=== PATIENT | male | born 1945 | race Caucasian/White ===

== ENCOUNTER 2016-10-09 10:25 | Outpatient (CLI) | payer MEDICARE | END 2016-10-09 10:26 | disposition home or self-care (01) | DX: B71.9 Cestode infection, unspecified (principal) ==

== ENCOUNTER 2016-10-17 17:00 | Outpatient (CLI) | payer MEDICARE | END 2016-10-17 17:01 | disposition home or self-care (01) | DX: B71.9 Cestode infection, unspecified (principal) ==

== ENCOUNTER 2016-12-01 13:51 | Outpatient (CLI) | payer MEDICARE | END 2016-12-01 13:52 | disposition home or self-care (01) | DX: I35.8 Other nonrheumatic aortic valve disorders (principal) ==

== ENCOUNTER 2017-10-23 11:27 | Outpatient (CLI) | payer MEDICARE ==
[2017-10-23 19:00] LABS: BASOPHILS # (AUTO) 0.1 10^3/uL (0.0-0.1); BASOPHILS % (AUTO) 1.3 %; EOSINOPHILS # (AUTO) 0.3 10^3/uL (0.0-0.7); EOSINOPHILS % (AUTO) 5.4 %; LYMPHOCYTES # (AUTO) 1.5 10^3/uL (1.5-3.5); LYMPHOCYTES % (AUTO) 25.2 %; MEAN CORPUSCULAR HEMOGLOBIN 27.2 pg (27.0-31.0); MEAN CORPUSCULAR HGB CONC 31.9 g/dL (32.0-36.0); MEAN CORPUSCULAR VOLUME 85.2 fL (80.0-94.0); MEAN PLATELET VOLUME 9.8 fL (7.4-11.4); MONOCYTES # (AUTO) 0.7 10^3/uL (0.0-1.0); MONOCYTES % (AUTO) 10.6 %; NEUTROPHILS # (AUTO) 3.5 10^3/uL (1.5-6.6); NEUTROPHILS % (AUTO) 57.5 %; PLT - PLATELET COUNT 208 10^3/uL (130-450); RED BLOOD COUNT 5.52 10^6/uL (4.70-6.10); RED CELL DISTRIBUTION WIDTH 14.8 % (12.0-15.0); WHITE BLOOD COUNT 6.1 x10^3/uL (4.8-10.8)
[2017-10-23 19:20] LABS: ALBUMIN/GLOBULIN RATIO 1.3 (1.0-2.2); BILIRUBIN,TOTAL 0.7 mg/dL (0.2-1.0); CALCIUM 9.2 mg/dL (8.5-10.3); CREATININE 1.2 mg/dL (0.6-1.2)
== END 2017-10-23 11:28 ==
LOC: LAB.WCP 11:27
PROVIDERS: ATTEND Family Medicine
DX: R10.9 Unspecified abdominal pain (principal)
CPT/HCPCS: 36415; 80053; 85025

== ENCOUNTER 2017-10-26 11:50 | Outpatient (CLI) | payer MEDICARE ==
[2017-10-26] MEDS ORDERED: IOPAMIDOL-300 100 ML VIAL ONE (14:17)
[2017-10-26] MEDS ORDERED: IOPAMIDOL-300 100 ML VIAL IVP ONE (16:00)
--- NOTE | 2017-10-26 20:19 | CT Report ---
EXAM: CT CHEST EXAM DATE: 10/26/2017 03:03 PM. CLINICAL HISTORY: Large bruise without injury under right axilla with mass, right flank pain COMPARISONS: Same day CT abdomen/pelvis. TECHNIQUE: Routine helical CT imaging was performed through the chest. IV contrast: 100 mL Isovue-300 . Reconstructions: Coronal and sagittal. In accordance with CT protocol optimization, one or more of the following dose reduction techniques w ere utilized for this exam: automated exposure control, adjustment of mA and/or KV based on patient s ize, or use of iterative reconstructive technique. FINDINGS: Mild motion artifact. Chest wall: No evidence of right axillary or chest wall mass or lymphadenopathy. Small hyperdense hem atoma in the anterior aspect of the right latissimus dorsi muscle measures 4.2 x 2.2 x 2.4 cm (image 21 series 2). No abnormal enhancement. Mild edema in the adjacent fat subcutaneous extending inferior ly. Lungs/Pleura: Mildly elevated right hemidiaphragm. No pneumonia, pleural effusion or pneumothorax. No suspicious nodule or mass allowing for limitations of motion artifact. Mediastinum: Normal heart size. No pericardial effusion. Normal caliber aorta. Asymmetrically promine nt right hilar lymph nodes measuring up to 12 x 10 mm (image 32 series 2). No mediastinal or left hil ar lymphadenopathy. Bones: Unremarkable. Visualized Abdomen: See separately dictated CT. Other: None. IMPRESSION: 1. Small hematoma in the right latissimus dorsi muscle measuring up to 4.2 cm. Mild edema in the sampson cent chest wall subcutaneous fat. MRI with and without contrast may be helpful to evaluate for underl yanet lesion if there is no history of trauma and the patient is not coagulopathic. 2. Mild asymmetric prominence of right hilar lymph nodes is nonspecific. [facility] Referring Provider Line: [phone] SITE ID: [id number]
--- NOTE | 2017-10-26 22:01 | CT Report ---
EXAM: CT ABDOMEN AND PELVIS WITHOUT AND WITH CONTRAST (CT IVP) EXAM DATE: 10/26/2017 02:22 PM. CLINICAL HISTORY: ABDOMINAL PAIN. Right axillary bruise. COMPARISONS: Same day CT chest, 01/24/2016. TECHNIQUE: Routine helical imaging was performed through the kidneys, ureters and bladder in the prec ontrast, postcontrast and delayed phase. IV Contrast: 100 mL Isovue-370. Reconstructions: Coronal and sagittal. In accordance with CT protocol optimization, one or more of the following dose reduction techniques w ere utilized for this exam: automated exposure control, adjustment of mA and/or KV based on patient s ize, or use of iterative reconstructive technique. FINDINGS: Lung Bases: See CT chest Right Kidney/Ureter: 4 nonobstructing right renal stones, the largest superiorly measuring [address] one inferiorly measures 6 mm. No ureteral stones or filling defects. No hydronephrosis. Exophytic ri ght renal cyst measures 2.5 x 2.4 cm. Tiny cortical hypoattenuating lesion superiorly is too small to characterize but statistically likely a cyst. No enhancing mass. Left Kidney/Ureter: There are 3-4 stones measuring up to 4 mm in the midpole. No ureteral stones or f illing defects. Inferior pole cyst measures 3.8 x 2.3 cm. Adjacent 9 mm hypoattenuating lesion and ti ny 5 mm exophytic inferior pole lesion are not well characterized but statistically likely cysts. Other Solid Organs: Unremarkable. Gallbladder demonstrates probable tiny gallstones. The bile ducts a re unremarkable. Peritoneal Cavity/Bowel: No bowel obstruction. No free fluid, free air or adenopathy. Sigmoid diverti culosis. Pelvic Organs: No definite bladder stones. Small calcifications along the posterior bladder are likel y outside of the lumen and similar to 2016. No filling defects in the opacified portion of the bladde r. The prostate gland is enlarged and indents the bladder base measuring 5 cm in diameter. Vasculature: Atherosclerosis without aneurysm. Bones: L2 and L3 superior endplate compression deformities are unchanged. Other: Right flank soft tissues demonstrate mild edema. IMPRESSION: 1. Nonobstructing renal stones bilaterally as described. No obstructing stones. 2. No enhancing mass. Bilateral renal cysts. 3. Mild edema in the right flank subcutaneous tissues is likely related to the right latissimus dorsi hematoma as described in the CT chest. 4. Enlarged prostate gland. [facility] Referring Provider Line: [phone] SITE ID: [id number]
== END 2017-10-26 11:51 | disposition home or self-care (01) ==
LOC: DI 11:50
PROVIDERS: ATTEND Family Medicine
DX: N20.0 Calculus of kidney (principal); R10.9 Unspecified abdominal pain; R05 Cough; Q61.02 Congenital multiple renal cysts; N40.0 Benign prostatic hyperplasia without lower urinary tract symptoms; S30.0XXA Contusion of lower back and pelvis, initial encounter
CPT/HCPCS: 71260; 74178; Q9967

== ENCOUNTER 2018-08-29 13:04 | Outpatient (CLI) | payer MEDICARE ==
[2018-08-29 18:32] LABS: BASOPHILS # (AUTO) 0.1 10^3/uL (0.0-0.1); BASOPHILS % (AUTO) 1.3 %; EOSINOPHILS # (AUTO) 0.2 10^3/uL (0.0-0.7); EOSINOPHILS % (AUTO) 4.3 %; HGB - HEMOGLOBIN 15.2 g/dL (14.0-18.0); LYMPHOCYTES # (AUTO) 1.4 10^3/uL (1.5-3.5); LYMPHOCYTES % (AUTO) 25.9 %; MEAN CORPUSCULAR HEMOGLOBIN 28.4 pg (27.0-31.0); MEAN CORPUSCULAR HGB CONC 32.3 g/dL (32.0-36.0); MEAN CORPUSCULAR VOLUME 88.1 fL (80.0-94.0); MEAN PLATELET VOLUME 9.8 fL (7.4-11.4); MONOCYTES # (AUTO) 0.4 10^3/uL (0.0-1.0); MONOCYTES % (AUTO) 7.3 %; NEUTROPHILS # (AUTO) 3.3 10^3/uL (1.5-6.6); NEUTROPHILS % (AUTO) 61.2 %; PLT - PLATELET COUNT 153 10^3/uL (130-450); RED BLOOD COUNT 5.35 10^6/uL (4.70-6.10); WHITE BLOOD COUNT 5.4 x10^3/uL (4.8-10.8)
[2018-08-29 19:04] LABS: THYROID STIMULATING HORMONE 1.65 uIU/mL (0.34-5.60)
[2018-08-29 19:06] LABS: FREE T4 (FREE THYROXINE) 0.97 ng/dL (0.58-1.64)
[2018-08-29 20:15] LABS: DIFFERENTIAL COMMENT MANUAL=AUTO DIFF; PLATELET ESTIMATE, MANUAL NORMAL (130-450,000) (NORMAL); PLATELET MORPHOLOGY NORMAL APPEARANCE (NORMAL); RBC MORPHOLOGY (MULTIPLE) NORMAL APPEARANCE (NORMAL)
[2018-08-29 20:17] LABS: ALBUMIN/GLOBULIN RATIO 1.3 (1.0-2.2); BILIRUBIN,TOTAL 0.6 mg/dL (0.2-1.0); CALCIUM 9.2 mg/dL (8.5-10.3); CREATININE 1.2 mg/dL (0.6-1.2)
== END 2018-08-29 13:05 | disposition home or self-care (01) ==
LOC: LAB.F 13:04
PROVIDERS: ATTEND Nurse Practitioner Family
DX: R53.83 Other fatigue (principal)
CPT/HCPCS: 36415; 80053; 84439; 84443; 84481; 85025

== ENCOUNTER 2018-11-25 00:20 | Emergency (ER) | payer MEDICARE ==
[2018-11-25] MEDS ORDERED: IOVERSOL 320 100 ML VIAL IVP ONE ×3 (00:21→01:54)
[2018-11-25] MEDS ORDERED: SODIUM CHLORIDE 0.9% 1,000 ML IV ONE (00:44)
--- NOTE | 2018-11-25 00:44 | ED Physician Documentation ---
PD HPI FOCAL NEURO - Stated complaint Stated Complaint: RIGHT SIDE NUMB/FACE NUMB - Chief complaint Chief Complaint: Neuro - History obtained from History obtained from: Patient - History of Present Illness Timing - onset: How many hours ago (08/06) Timing - duration: Hours (08/06) Timing - details: Abrupt onset Severity of deficit: Mild (right arm and leg numbness without weakness, then developed left face numbness about 45 minutes later.) Weakness: No: Face, Arm, Leg Numbness: Arm, Hand, Foot, Right, Other (and left face numb) Associated symptoms: No: Headache, Nausea / vomiting Contributing factors: negative: Anticoagulated, Vascular dz, Atrial fibrillation Baseline status: positive: A&OX3, ambulatory, indep Similar symptoms before: Has not had sx before Recently seen: Not recently seen Review of Systems Constitutional: denies: Fever, Myalgias Nose: denies: Rhinorrhea / runny nose, Congestion Throat: denies: Sore throat Cardiac: denies: Chest pain / pressure, Pedal edema Respiratory: denies: Dyspnea, Cough GI: denies: Abdominal Pain, Vomiting, Diarrhea Skin: denies: Rash, Lesions Neurologic: reports: Numbness, Other (no trouble walking). denies: Focal weakness, Difficulty speaking, Near syncope PD PAST MEDICAL HISTORY - Past Medical History Cardiovascular: Valve disorder (aortic stenosis) Respiratory: None Neuro: None Endocrine/Autoimmune: None : Benign prostate hypertrophy, Kidney stones - Past Surgical History Past Surgical History: Yes General: Appendectomy - Present Medications Home Medications: Ambulatory Orders Medication Instructions Recorded Confirmed Dextroamphetamine/Amphetamine 11/25/18 [Dextroamp-Amphetamin 30 mg Tab] Tamsulosin HCl [Flomax] 11/25/18 - Allergies Allergies/Adverse Reactions: Allergies Allergy/AdvReac Type Severity Reaction Status Date / Time No Known Drug Allergies Allergy Verified 11/25/18 00:26 - Social History Does the pt smoke?: No Smoking Status: Never smoker Does the pt drink ETOH?: No Does the pt have substance abuse?: No - Family History Family history: reports: CAD. denies: Venous thromboembolism - Immunizations Immunizations: TDAP >10years/unknown PD ED PE NORMAL - Vitals Vital signs reviewed: Yes - General General: Alert and oriented X 3, No acute distress, Well developed/nourished - HEENT HEENT: Ears normal, Pharynx benign - Neck Neck: Supple, no meningeal sign, No adenopathy, No bruit - Cardiac Cardiac: RRR, Other (1/6 murmur left chest radiating to neck c/w .) - Respiratory Respiratory: Clear bilaterally - Abdomen Abdomen: Soft, Non tender NIHSS - Level of Consciousness Level of consciousness: (0) Alert, Keenly responsive LOC Questions: (0) Answers both Q's correct LOC Commands: (0) Performs both correctly - Gaze Best Gaze: (0) Normal - Visual Visual: (0) No loss - Facial Palsy Facial Palsy: (0) Normal, symmetrical movement - Motor Arms (both separate) Motor Arm (right): (0) No drift Motor Arm (left): (0) No drift - Motor Legs (both separate) Motor Leg (right): (0) No drift Motor Leg (left): (0) No drift - Limb Ataxia Limb Ataxia: (0) Absent - Sensory Sensory: (1) [id number] loss - Best Language Best Language: (0) No aphasia - Dysarthria Dysarthria: (0) Normal - Extinction and Inattention (formally neg Extinction and inattention: (0) No abnormality - Total Score/Results Total Score/Result: 1 Results - Vitals Vitals: Vital Signs - 24 hr 11/25/18 11/25/18 11/25/18 00:24 00:34 00:41 Temperature 36.2 C L Heart Rate 87 80 78 Respiratory 16 16 14 Rate Blood Pressure 174/110 H 174/108 H 161/96 H O2 Saturation 97 98 97 11/25/18 11/25/18 11/25/18 01:37 02:02 02:30 Temperature Heart Rate 79 79 73 Respiratory 17 22 18 Rate Blood Pressure 150/93 H 181/104 H 175/105 H O2 Saturation 96 96 98 11/25/18 03:13 Temperature 36.3 C L Heart Rate 78 Respiratory 17 Rate Blood Pressure 132/69 H O2 Saturation 99 Oxygen O2 Source Room air - Labs Labs: Laboratory Tests 11/25/18 11/25/18 11/25/18 00:30 00:30 00:30 WBC 6.5 RBC 5.00 Hgb 14.0 Hct 42.6 MCV 85.3 MCH 28.1 MCHC 33.0 RDW 15.4 H Plt Count 167 MPV 8.4 Neut # (Auto) 3.8 Lymph # (Auto) 1.8 [place] # (Auto) 0.7 Eos # (Auto) 0.3 Baso # (Auto) 0.0 Absolute Nucleated RBC 0.00 Nucleated RBC % 0.0 ESR 7 Sodium 140 Potassium 3.9 Chloride 105 Carbon Dioxide 26 Anion Gap 9.0 BUN 18 Creatinine 1.5 H Estimated GFR (MDRD) 46 L Glucose 94 Calcium 9.0 Magnesium 2.2 Total Bilirubin 0.5 AST 28 ALT 31 Alkaline Phosphatase 85 Total Protein 7.3 Albumin 4.1 Globulin 3.2 Albumin/Globulin Ratio 1.3 Lipase 28 - Rads (name of study) head CT Radiology: Prelim report reviewed, Discussed with rads (no acute process), See rad report head/neck angio Radiology: Prelim report reviewed, Discussed with rads (no stenoses/occlusions), See rad report PD MEDICAL DECISION MAKING - ED course Complexity details: reviewed results, re-evaluated patient (Back from CT he is feeling improvement in his numbness without complete resolution. Consultation with [facility] tele-stroke neurology was made and I talked the case with him and the neurologist did do video conferencing with the patient. Shared decision was to not do any thrombolytics because of mild symptoms and resolving. The patient preference is to not do thrombolytics as well. The neurologist and myself to discuss the desire for further workup. The patient however states to rather go home. He is understanding of the reason and importance of better defining the degree of injury such as TIA versus stroke and also to evaluate for stroke mimics such as MS. He states he would follow-up with his primary care for outpatient evaluation. He prefers not to be in the hospital. The nurse and his were present during the discussion.), considered differential, d/w patient Departure - Departure Disposition: 01 Home, Self Care Clinical Impression: Numbness on right side Cerebrovascular accident (CVA) Qualifiers: CVA mechanism: unspecified Qualified Code(s): I63.9 - Cerebral infarction, unsp ecified Condition: Stable Record reviewed to determine appropriate education?: Yes Instructions: ED Transient Ischemic Attack Comments: Take an aspirin 81 mg daily. Follow-up with your primary care in the next few days, call for an appointment. Commonly we would have you in the hospital for further testing such as MRI and echocardiogram. These can be helpful to determine stroke versus TIA and also assess for stroke mimics such as MS. I understand you would prefer going home and that is your choice. Please follow- up with your primary care for further evaluation and testing. Reurn if worsening symptoms. Discharge Date/Time: 11/25/18 03:13
[2018-11-25 00:56] LABS: BASOPHILS % (AUTO) 0.2 %; EOSINOPHILS # (AUTO) 0.3 10^3/uL (0.0-0.7); EOSINOPHILS % (AUTO) 4.6 %; LYMPHOCYTES # (AUTO) 1.8 10^3/uL (1.5-3.5); LYMPHOCYTES % (AUTO) 27.5 %; MEAN CORPUSCULAR HEMOGLOBIN 28.1 pg (27.0-31.0); MEAN CORPUSCULAR VOLUME 85.3 fL (80.0-94.0); MEAN PLATELET VOLUME 8.4 fL (7.4-11.4); MONOCYTES # (AUTO) 0.7 10^3/uL (0.0-1.0); MONOCYTES % (AUTO) 10.4 %; NEUTROPHILS # (AUTO) 3.8 10^3/uL (1.5-6.6); NEUTROPHILS % (AUTO) 57.3 %; PLT - PLATELET COUNT 167 10^3/uL (130-450); RED CELL DISTRIBUTION WIDTH 15.4 % (12.0-15.0); WHITE BLOOD COUNT 6.5 x10^3/uL (4.8-10.8)
[2018-11-25 01:05] LABS: ALBUMIN 4.1 g/dL (3.2-5.5); ALBUMIN/GLOBULIN RATIO 1.3 (1.0-2.2); BILIRUBIN,TOTAL 0.5 mg/dL (0.2-1.0); CREATININE 1.5 mg/dL (0.6-1.2); MAGNESIUM 2.2 mg/dL (1.7-2.8); TOTAL PROTEIN 7.3 g/dL (6.7-8.2)
--- NOTE | 2018-11-25 01:23 | CT Report ---
Reason: right side numbness; left face numbness Procedure Date: 11/25/2018 Accession Number: [id number] / [id number] Procedure: CT - Head W/O Stroke Protocol CPT Code: FULL RESULT: EXAM: CT HEAD EXAM DATE: 11/25/2018 01:12 AM. CLINICAL HISTORY: Right side numbness; left face numbness. COMPARISON: None. TECHNIQUE: Multiaxial CT images were obtained from the foramen magnum to the vertex. Reformats: Sagittal and coronal. IV contrast: None. In accordance with CT protocol optimization, one or more of the following dose reduction techniques were utilized for this exam: automated exposure control, adjustment of mA and/or KV based on patient size, or use of iterative reconstructive technique. FINDINGS: Parenchyma: No intraparenchymal hemorrhage. No evidence of mass, midline shift, or CT findings of acute infarction. Chaudhari-white differentiation is distinct. Extraaxial Spaces: Normal for age. No subdural or epidural collections identified. Ventricles: Normal in size and position. Sinuses and Orbits: Imaged paranasal sinuses, orbits, and mastoids show no significant abnormality. Bones: No evidence of fracture or calvarial defect. Other: None. IMPRESSION: No acute or focal intracranial abnormality. ASPECTS 10 bilaterally [facility] The critical test notification system was initiated by Dr. Srinivas Grove at 01:18 AM on 11/25/2018. The above critical test findings were discussed with Yong Manriquez by Dr. Srinivas Grove at 01:21 AM on 11/25/2018.
--- NOTE | 2018-11-25 02:16 | CT Report ---
Reason: left face; right body numbness Procedure Date: 11/25/2018 Accession Number: [id number] / [id number] Procedure: CT - ANGIO HEAD W CPT Code: FULL RESULT: EXAM: CT ANGIOGRAM HEAD. CT SCAN OF THE HEAD WITH CONTRAST. EXAM DATE: 11/25/2018 01:43 AM CLINICAL HISTORY: Left face; right body numbness. COMPARISON: HEAD W/O STROKE PROTOCOL 11/25/2018 1:10 AM. TECHNIQUE: - CT Scan Head: Using a multidetector scanner, axial images were acquired from the foramen magnum to the skull vertex prior to and following contrast administration. - CT Angiogram: Using a multidetector scanner, high-resolution axial images were acquired from the skull base through vertex following rapid infusion of intravenous contrast. Reformats: Multiplanar MIP reformats were reconstructed. Nascet criteria used for stenosis measurement. IV Contrast: [id number] 80ml. In accordance with CT protocol optimization, one or more of the following dose reduction techniques were utilized for this exam: automated exposure control, adjustment of mA and/or KV based on patient size, or use of iterative reconstructive technique. FINDINGS: POST-CONTRAST HEAD: No abnormal enhancement. CT ANGIOGRAM HEAD: Left vertebral artery is slightly larger than the right. Basilar artery is patent with a congenitally small appearance. Persistent circulation to the right posterior cerebral artery. Patent left posterior communicating artery. Both posterior cerebral arteries appear patent. Both internal carotid arteries, anterior and middle cerebral arteries are patent and unremarkable. Patent anterior communicating artery. DURAL VENOUS SINUSES AND MAJOR CENTRAL VEINS: Patent. IMPRESSION: CT Head: No acute intracranial abnormality. Specifically, no evidence of acute infarct, hemorrhage, or mass lesion. No abnormal enhancement. CTA Head: No large vessel occlusion, stenosis or aneurysm. [facility] The call report notification system was initiated by Dr. Srinivas Grove at 02:01 AM on 11/25/2018. The above call report findings were discussed with Yong Manriquez by Dr. Srinivas Grove at 02:14 AM on 11/25/2018.
--- NOTE | 2018-11-25 02:16 | CT Report ---
Reason: left face; right arm/leg numbness Procedure Date: 11/25/2018 Accession Number: [id number] / [id number] Procedure: CT - ANGIO NECK W/WO CPT Code: FULL RESULT: EXAM: CT ANGIOGRAM NECK EXAM DATE: 11/25/2018 01:40 AM. CLINICAL HISTORY: Left face; right arm/leg numbness. COMPARISON: HEAD W/O STROKE PROTOCOL 11/25/2018 1:10 AM. TECHNIQUE: Routine axial helical imaging was performed from the skull base through the aortic arch. Reconstructions: Routine multiplanar 3D MIP reconstructions. IV Contrast: [id number] 80ml. Evaluation of arterial stenosis is based on a NASCET method of measurement. In accordance with CT protocol optimization, one or more of the following dose reduction techniques were utilized for this exam: automated exposure control, adjustment of mA and/or KV based on patient size, or use of iterative reconstructive technique. FINDINGS: Right Carotid: The common carotid, internal carotid, and external carotid arteries are widely patent. No dissection, significant atherosclerotic plaque, or calcification identified. Left Carotid: The common carotid, internal carotid, and external carotid arteries are widely patent. No dissection, significant atherosclerotic plaque, or calcification identified. Vertebrals: The vertebrobasilar system shows no stenoses. Intracranial Circulation: Normal. No stenoses or aneurysms of the visualized vessels. Other: Anterolisthesis at C3-C4. Severe disk space narrowing from C4-C5 through C7-T1. IMPRESSION: 1. No carotid stenosis in the neck. 2. Patent vertebral arteries in the neck bilaterally. 3. No findings concerning for dissection. [facility] The call report notification system was initiated by Dr. Srinivas Grove at 02:05 AM on 11/25/2018. The above call report findings were discussed with Yong Manriquez by Dr. Srinivas Grove at 02:14 AM on 11/25/2018.
[2018-11-25] MEDS ORDERED: ASPIRIN CHEW 81 MG TABLET PO STA (02:26)
[2018-11-25 03:14] VITALS: BP 132/69
== END 2018-11-25 03:13 | disposition home or self-care (01) ==
LOC: ED 00:20
DX: I63.9 Cerebral infarction, unspecified (principal)
CPT/HCPCS: 36415; 70450; 70496; 70498; 80053; 83690; 83735; 85025; 85651; 93005; 96360; 99283; 99284; A9270; Q3014; Q9967

== ENCOUNTER 2019-05-29 13:47 | Outpatient (CLI) | payer MEDICARE ==
[2019-05-29 18:05] LABS: BUN - BLOOD UREA NITROGEN 23 mg/dL (6-20); CALCIUM 9.2 mg/dL (8.5-10.3); CARBON DIOXIDE - CO2 28 mmol/L (21-32); CHLORIDE 99 mmol/L (101-111); CHOL/HDL RATIO 4.4 (<5.0); CHOLESTEROL 227 mg/dL; CREATININE 2.1 mg/dL (0.6-1.2); GFR - MDRD 31 (>89); GLUCOSE 109 mg/dL (70-100); HDL CHOLESTEROL 52 mg/dL; LDL CHOLESTEROL,CALCULATED 154 mg/dL; SODIUM 137 mmol/L (135-145); VLDL CHOLESTEROL 21 mg/dL
== END 2019-05-29 13:48 | disposition home or self-care (01) ==
LOC: LAB.S 13:47
PROVIDERS: ATTEND Internal Medicine
DX: I35.0 Nonrheumatic aortic (valve) stenosis (principal); R19.4 Change in bowel habit; F98.8 Other specified behavioral and emotional disorders with onset usually occurring in childhood and adolescence; N40.0 Benign prostatic hyperplasia without lower urinary tract symptoms; N52.9 Male erectile dysfunction, unspecified; E78.5 Hyperlipidemia, unspecified; R73.01 Impaired fasting glucose; G47.33 Obstructive sleep apnea (adult) (pediatric); G25.81 Restless legs syndrome; G45.9 Transient cerebral ischemic attack, unspecified; R79.89 Other specified abnormal findings of blood chemistry
CPT/HCPCS: 36415; 80048; 80061; 83721

== ENCOUNTER 2022-08-24 08:00 | Outpatient (CLI) | payer MEDICARE ==
[2022-08-24 19:57] LABS: BILIRUBIN,URINE NEGATIVE (NEGATIVE); GLUCOSE, URINE (UA) NEGATIVE (NEGATIVE); KETONES,URINE (UA) NEGATIVE (NEGATIVE); LEUKOCYTE ESTERASE, URINE LARGE (NEGATIVE); NITRITE,URINE POSITIVE (NEGATIVE); OCCULT BLOOD,URINE MODERATE (NEGATIVE); PROTEIN,URINE NEGATIVE (NEGATIVE); UROBILINOGEN,URINE 0.2 (NORMAL) E.U./dL (NORMAL)
[2022-08-24 20:04] LABS: CLARITY,URINE CLOUDY (CLEAR)
[2022-08-24 20:45] LABS: BACTERIA,URINE Moderate /HPF (None Seen); SQUAMOUS EPITHELIAL CELL,UR RARE Squamous (<= Few); WBC,URINE >25 /HPF (0-3)
== END 2022-08-24 23:25 | disposition home or self-care (01) ==
LOC: LAB 08:00
PROVIDERS: ATTEND Internal Medicine
DX: R39.9 Unspecified symptoms and signs involving the genitourinary system (principal)
CPT/HCPCS: 81001; 87077; 87086; 87181

== ENCOUNTER 2022-09-14 08:00 | Outpatient (CLI) | payer MEDICARE, OTHER | END 2022-09-14 23:59 | disposition home or self-care (01) | LOC: LAB 08:00 | PROVIDERS: ATTEND Physician Assistant | DX: R30.0 Dysuria (principal) | CPT/HCPCS: 87086 ==

== ENCOUNTER 2022-11-06 15:04 | Outpatient (CLI) | payer MEDICARE, OTHER ==
[2022-11-06 15:32] LABS: BASOPHILS % (AUTO) 0.6 %; EOSINOPHILS # (AUTO) 0.2 10^3/uL (0.0-0.7); EOSINOPHILS % (AUTO) 3.2 %; HCT - HEMATOCRIT 43.5 % (42.0-52.0); HGB - HEMOGLOBIN 13.9 g/dL (14.0-18.0); LYMPHOCYTES # (AUTO) 1.7 10^3/uL (1.5-3.5); LYMPHOCYTES % (AUTO) 25.2 %; MEAN CORPUSCULAR HEMOGLOBIN 27.9 pg (27.0-31.0); MEAN CORPUSCULAR VOLUME 87.2 fL (80.0-94.0); MEAN PLATELET VOLUME 9.8 fL (7.4-11.4); MONOCYTES # (AUTO) 0.6 10^3/uL (0.0-1.0); MONOCYTES % (AUTO) 9.5 %; NEUTROPHILS % (AUTO) 61.2 %; PLT - PLATELET COUNT 192 10^3/uL (130-450); RED BLOOD COUNT 4.99 10^6/uL (4.70-6.10); RED CELL DISTRIBUTION WIDTH 14.3 % (12.0-15.0); WHITE BLOOD COUNT 6.6 x10^3/uL (4.8-10.8)
[2022-11-06 15:49] LABS: ALBUMIN 3.8 g/dL (3.2-5.5); ALBUMIN/GLOBULIN RATIO 1.3 (1.0-2.2); ALKALINE PHOSPHATASE 100 IU/L (42-121); ALT ALANINE AMINOTRANSFERASE 13 IU/L (10-60); AST ASPARTATE AMINOTRANSFERASE 18 IU/L (10-42); BILIRUBIN,TOTAL 0.6 mg/dL (0.2-1.0); BUN - BLOOD UREA NITROGEN 23 mg/dL (6-20); CALCIUM 9.1 mg/dL (8.5-10.3); CARBON DIOXIDE - CO2 29 mmol/L (21-32); CHLORIDE 105 mmol/L (101-111); CHOL/HDL RATIO 4.8 (<5.0); CHOLESTEROL 262 mg/dL; CREATININE 1.3 mg/dL (0.6-1.2); GFR - MDRD 53 (>89); GLUCOSE 85 mg/dL (70-100); HDL CHOLESTEROL 55 mg/dL; LDL CHOLESTEROL,CALCULATED 177 mg/dL; LDL/HDL RATIO 3.2 (<3.6); POTASSIUM 4.3 mmol/L (3.5-5.0); SODIUM 140 mmol/L (135-145); TOTAL PROTEIN 6.8 g/dL (6.7-8.2); TRIGLYCERIDES 149 mg/dL; VLDL CHOLESTEROL 30 mg/dL
[2022-11-06 16:00] LABS: THYROID STIMULATING HORMONE 1.83 uIU/mL (0.34-5.60)
[2022-11-06 21:16] LABS: ESTIMATED AVERAGE GLUCOSE 117 mg/dL (70-100); HEMOGLOBIN A1c% 5.7 % (4.27-6.07)
== END 2022-11-06 15:05 | disposition home or self-care (01) ==
LOC: LAB.R 15:04 → LAB 15:05
PROVIDERS: ATTEND Nurse Practitioner Family
DX: E78.5 Hyperlipidemia, unspecified (principal); R03.0 Elevated blood-pressure reading, without diagnosis of hypertension; R53.83 Other fatigue; N40.1 Benign prostatic hyperplasia with lower urinary tract symptoms; N13.8 Other obstructive and reflux uropathy; F90.9 Attention-deficit hyperactivity disorder, unspecified type; Z77.010 Contact with and (suspected) exposure to arsenic; Z79.899 Other long term (current) drug therapy
CPT/HCPCS: 36415; 80053; 80061; 81599; 82175; 83036; 83721; 84153; 84443; 85025

== ENCOUNTER 2023-02-11 17:33 | Outpatient (CLI) | payer MEDICARE, OTHER ==
[2023-02-11 18:14] LABS: BILIRUBIN,URINE NEGATIVE (NEGATIVE); GLUCOSE, URINE (UA) NEGATIVE (NEGATIVE); KETONES,URINE (UA) NEGATIVE (NEGATIVE); LEUKOCYTE ESTERASE, URINE SMALL (NEGATIVE); NITRITE,URINE NEGATIVE (NEGATIVE); OCCULT BLOOD,URINE NEGATIVE (NEGATIVE); PROTEIN,URINE NEGATIVE (NEGATIVE); UROBILINOGEN,URINE 0.2 (NORMAL) E.U./dL (NORMAL)
[2023-02-11 18:16] LABS: CLARITY,URINE CLOUDY (CLEAR)
[2023-02-11 18:24] LABS: AMORPHOUS SEDIMENT,UR Few /LPF; BACTERIA,URINE Moderate /HPF (None Seen); RBC,URINE 0-5 /HPF (0-5); SQUAMOUS EPITHELIAL CELL,UR NONE SEEN (<= Few)
== END 2023-02-11 17:34 | disposition home or self-care (01) ==
LOC: LAB 17:33
PROVIDERS: ATTEND Internal Medicine
DX: M25.569 Pain in unspecified knee (principal); N39.0 Urinary tract infection, site not specified
CPT/HCPCS: 81001; 87086

== ENCOUNTER 2023-02-18 15:37 | Outpatient (CLI) | payer MEDICARE, OTHER ==
--- NOTE | 2023-02-19 10:18 | XRAY Report ---
PROCEDURE: Knee 3 View BILAT INDICATIONS: KNEE PAIN TECHNIQUE: 3 views of the right and left knee(s) were acquired. COMPARISON: None. FINDINGS: Bones: No fractures or dislocations. No suspicious bony lesions. At the right knee there is sever e medial compartment narrowing with spurring and articular surface deformity. Moderate patellofemoral and mild lateral compartment narrowing and spurring also demonstrated. The left knee moderate tricom partmental joint space narrowing and spurring are present. Soft tissues: Small right knee joint effusion. Vascular calcifications are present. IMPRESSION: Degenerative changes of both knees. Small right knee effusion. Reviewed by: Sylvester Odonnell MD on 02/19/2023 10:17 AM PDT Approved by: Sylvester Odonnell MD on 02/19/2023 10:17 AM PDT Station ID: [id number]
== END 2023-02-18 15:38 | disposition home or self-care (01) ==
LOC: DI.S 15:37
PROVIDERS: ATTEND Internal Medicine
DX: M17.0 Bilateral primary osteoarthritis of knee (principal); M25.461 Effusion, right knee

== ENCOUNTER 2023-05-20 14:35 | Outpatient (CLI) | payer MEDICARE, OTHER ==
[2023-05-20 20:02] LABS: BILIRUBIN,URINE NEGATIVE (NEGATIVE); GLUCOSE, URINE (UA) NEGATIVE (NEGATIVE); KETONES,URINE (UA) NEGATIVE (NEGATIVE); LEUKOCYTE ESTERASE, URINE LARGE (NEGATIVE); NITRITE,URINE POSITIVE (NEGATIVE); OCCULT BLOOD,URINE NEGATIVE (NEGATIVE); PROTEIN,URINE NEGATIVE (NEGATIVE); UROBILINOGEN,URINE 0.2 (NORMAL) E.U./dL (NORMAL)
[2023-05-20 20:25] LABS: CLARITY,URINE HAZY (CLEAR)
[2023-05-20 20:28] LABS: BACTERIA,URINE Moderate /HPF (None Seen); RBC,URINE 0-5 /HPF (0-5); SQUAMOUS EPITHELIAL CELL,UR RARE Squamous (<= Few); WBC,URINE >25 /HPF (0-3)
== END 2023-05-20 14:36 | disposition home or self-care (01) ==
LOC: LAB.S 14:35
PROVIDERS: ATTEND Internal Medicine
DX: R39.9 Unspecified symptoms and signs involving the genitourinary system (principal)
CPT/HCPCS: 81001; 87077; 87086; 87181

== ENCOUNTER 2023-07-26 08:00 | Outpatient (CLI) | payer MEDICARE, OTHER ==
[2023-07-26 20:17] LABS: BILIRUBIN,URINE NEGATIVE (NEGATIVE); GLUCOSE, URINE (UA) NEGATIVE (NEGATIVE); KETONES,URINE (UA) NEGATIVE (NEGATIVE); LEUKOCYTE ESTERASE, URINE SMALL (NEGATIVE); NITRITE,URINE NEGATIVE (NEGATIVE); OCCULT BLOOD,URINE NEGATIVE (NEGATIVE); PH,URINE 7.5 PH (5.0-7.5); PROTEIN,URINE NEGATIVE (NEGATIVE); UROBILINOGEN,URINE 0.2 (NORMAL) E.U./dL (NORMAL)
[2023-07-26 20:21] LABS: CLARITY,URINE HAZY (CLEAR)
[2023-07-26 20:23] LABS: BACTERIA,URINE Few /HPF (None Seen); RBC,URINE 0-5 /HPF (0-5); SQUAMOUS EPITHELIAL CELL,UR FEW Squamous (<= Few)
== END 2023-07-26 23:59 | disposition home or self-care (01) ==
LOC: LAB 08:00
PROVIDERS: ATTEND Internal Medicine
DX: R39.9 Unspecified symptoms and signs involving the genitourinary system (principal)
CPT/HCPCS: 81001; 87077; 87086; 87181

== ENCOUNTER 2023-10-18 08:00 | Outpatient (CLI) | payer MEDICARE, OTHER | END 2023-10-18 23:59 | disposition home or self-care (01) | LOC: LAB.S 08:00 | PROVIDERS: ATTEND Internal Medicine | DX: N39.0 Urinary tract infection, site not specified (principal) | CPT/HCPCS: 87086; 87181 ==

== ENCOUNTER 2023-11-01 06:54 | Emergency (ER) | payer MEDICARE, OTHER ==
--- NOTE | 2023-11-01 07:12 | ED Physician Documentation ---
PD HPI CHEST PAIN - Stated complaint Stated Complaint: CP - Chief complaint Chief Complaint: Cardiac - History obtained from History obtained from: Patient - History of Present Illness Timing - onset: How many hours ago (few), Today Timing - onset during: Rest Timing - duration: Hours (he states he awoke during the night with right chest pain, went back to sleep but is present still upon awakening again.) Timing - details: Abrupt onset, Still present Quality: Aching, Pain Location: Right chest Radiation: Neck, Right upper extremity Improved by: No: Rest Worsened by: No: Exertion, Inspiration Associated symptoms: No: Shortness of air, Nausea, Feeling faint / dizzy Review of Systems Constitutional: denies: Fever, Chills Nose: denies: Rhinorrhea / runny nose, Congestion Throat: denies: Sore throat Respiratory: denies: Cough PD PAST MEDICAL HISTORY - Past Medical History Cardiovascular: Valve disorder (being evaluated for TAVR. ) Respiratory: None Neuro: None Endocrine/Autoimmune: None : Benign prostate hypertrophy, Kidney stones Psych: Panic attacks, ADD/ADHD - Past Surgical History Past Surgical History: Yes General: Appendectomy - Present Medications Home Medications: Ambulatory Orders Medication Instructions Recorded Confirmed Dextroamphetamine/Amphetamine 30 mg PO DAILY 11/25/18 11/01/23 [Dextroamp-Amphetamin 30 mg Tab] Tamsulosin HCl [Flomax] 0.4 mg PO DAILY 11/25/18 11/01/23 - Allergies Allergies/Adverse Reactions: Allergies Allergy/AdvReac Type Severity Reaction Status Date / Time No Known Drug Allergies Allergy Verified 11/01/23 07:06 - Social History Does the pt smoke?: No Smoking Status: Never smoker Does the pt drink ETOH?: No Does the pt have substance abuse?: No - Immunizations Immunizations are current?: No Immunizations: TDAP >10years/unknown - POLST Patient has POLST: No PD ED PE NORMAL - Vitals Vital signs reviewed: Yes - General General: Alert and oriented X 3, No acute distress, Well developed/nourished - Neck Neck: Supple, no meningeal sign, No adenopathy - Cardiac Cardiac: RRR, Other (2/6 murmur left chest radiating to neck. ) - Respiratory Respiratory: No respiratory distress, Clear bilaterally - Abdomen Abdomen: Soft, Non tender - Derm Derm: Normal color, Warm and dry - Extremities Extremities: No edema, No calf tenderness / cord Results - Vitals Vitals: Oxygen O2 Source Room air - EKG (time done) 07:19 EKG releavant findings:: EKG personally interpreted by author of this note. Relevant findings are: Rate: Rate (enter#) (78) Rhythm: NSR Stacy: Normal Intervals: Normal VA QRS: LVH, Poor R wave progression Ischemia: Normal ST segments. No: ST elevation c/w ischemia, ST depression - Labs Labs: Laboratory Tests 11/01/23 11/01/23 07:32 07:32 WBC 7.4 RBC 4.97 Hgb 13.9 L Hct 43.4 MCV 87.3 MCH 28.0 MCHC 32.0 RDW 14.8 Plt Count 152 MPV 9.9 Neut # (Auto) 4.8 Lymph # (Auto) 1.4 L [place] # (Auto) 0.8 Eos # (Auto) 0.4 Baso # (Auto) 0.0 Absolute Nucleated RBC 0.00 Nucleated RBC % 0.0 Sodium 139 Potassium 4.1 Chloride 104 Carbon Dioxide 29 Anion Gap 6.0 BUN 27 H Creatinine 1.3 Estimated GFR (MDRD) 53 L Glucose 100 Calcium 9.7 Total Bilirubin 0.5 AST 16 ALT 12 Alkaline Phosphatase 98 Troponin I High Sens 29.9 H* Total Protein 6.5 Albumin 3.9 Globulin 2.6 Albumin/Globulin Ratio 1.5 Lipase 18 - Rads (name of study) chest xray Relevant Findings:: Prelim report reviewed, EMP independent interpretation of test (no acute process) PD Medical Decision Making - ED course Complexity details: reviewed results (ECG c/w history of aortic stenosis, resulting LVH with poor r wave progression (LAD). No signs of CHF. Trop minimally above normal after hours of CP. No pain now. ), considered differential, d/w patient Departure - Departure Disposition: 01 Home, Self Care Clinical Impression: Chest pain Qualifiers: Chest pain type: unspecified Qualified Code(s): R07.9 - Chest pain, unspecified Condition: Stable Record reviewed to determine appropriate education?: Yes Instructions: ED Chest Pain Atypical Unkn Cause Follow-Up: Rebeca Norris MD [Primary Care Provider] - [facility] [place] [Provider Group] Comments: Your EKG did not show any ischemic/injury pattern. Your chest x-ray is clear. Your blood test called troponin is minimally above the normal range and I would rated as negative. Unclear the cause of your pain. Follow-up with your cardiology this afternoon as planned. A concern would be ischemic such as angina without a heart attack per se in the setting of your aortic stenosis. Typically this is going be more exertional and not at rest. Other considerations would be reflux and you may consider some antacids or such at bedtime and see if you have less symptoms in the morning. Forms: PCP List Discharge Date/Time: 11/01/23 08:39
[2023-11-01 07:40] LABS: BASOPHILS % (AUTO) 0.4 %; EOSINOPHILS # (AUTO) 0.4 10^3/uL (0.0-0.7); EOSINOPHILS % (AUTO) 5.3 %; HCT - HEMATOCRIT 43.4 % (42.0-52.0); HGB - HEMOGLOBIN 13.9 g/dL (14.0-18.0); LYMPHOCYTES # (AUTO) 1.4 10^3/uL (1.5-3.5); LYMPHOCYTES % (AUTO) 18.6 %; MEAN CORPUSCULAR VOLUME 87.3 fL (80.0-94.0); MEAN PLATELET VOLUME 9.9 fL (7.4-11.4); MONOCYTES # (AUTO) 0.8 10^3/uL (0.0-1.0); MONOCYTES % (AUTO) 10.8 %; NEUTROPHILS # (AUTO) 4.8 10^3/uL (1.5-6.6); NEUTROPHILS % (AUTO) 64.6 %; PLT - PLATELET COUNT 152 10^3/uL (130-450); RED BLOOD COUNT 4.97 10^6/uL (4.70-6.10); RED CELL DISTRIBUTION WIDTH 14.8 % (12.0-15.0); WHITE BLOOD COUNT 7.4 x10^3/uL (4.8-10.8)
[2023-11-01 07:53] LABS: ALBUMIN 3.9 g/dL (3.2-5.5); ALBUMIN/GLOBULIN RATIO 1.5 (1.0-2.2); BILIRUBIN,TOTAL 0.5 mg/dL (0.2-1.0); CALCIUM 9.7 mg/dL (8.5-10.3); CREATININE 1.3 mg/dL (0.6-1.3); POTASSIUM 4.1 mmol/L (3.5-4.5); TOTAL PROTEIN 6.5 g/dL (6.4-8.9)
[2023-11-01] MEDS ORDERED: MAG HYDROX/AL HYDROX/SIMETH 30 ML UDC PO STA (07:57)
[2023-11-01 08:01] LABS: TROPONIN I HIGH SENSITIVITY 29.9 ng/L (2.3-19.7)
--- NOTE | 2023-11-01 08:06 | XRAY Report ---
PROCEDURE: Chest 1V INDICATIONS: Chest pain TECHNIQUE: One view of the chest was acquired. COMPARISON: None. FINDINGS: Surgical changes and devices: None. Lungs and pleura: No pleural effusions or pneumothorax. Lungs are clear. Mediastinum: Mediastinal contours appear normal. Heart size is normal. Bones and chest wall: No suspicious bony lesions. Overlying soft tissues appear unremarkable. IMPRESSION: No acute cardiopulmonary process. Reviewed by: Rusty Marcial MD on 11/01/2023 8:04 AM PDT Approved by: Rusty Marcial MD on 11/01/2023 8:04 AM PDT Station ID: [id number]
[2023-11-01 08:31] VITALS: BP 142/98; O2SAT 100
== END 2023-11-01 08:39 | disposition home or self-care (01) ==
LOC: ED 06:54
DX: R07.9 Chest pain, unspecified (principal)
CPT/HCPCS: 36415; 80053; 83690; 84484; 85025; 93005; 99283; 99284

== ENCOUNTER 2024-01-05 03:31 | Outpatient (CLI) | payer MEDICARE, OTHER | END 2024-01-05 23:59 | disposition E | LOC: EMS 03:31 ==